=== PATIENT | male | born 1985 | race Caucasian/White ===

== ENCOUNTER 2024-06-02 15:00 | Emergency (ER) | payer MEDICAID ==
[~2024-06-02] VITALS: Ht 175.3 cm; Wt 127.9 kg
[~2024-06-02 15:00] MED LIST: NABU-141 PO
[2024-06-02 15:14] VITALS: BP 152/84; TEMP 98.3
[2024-06-02] MEDS ORDERED: METH4TAB3 PO (15:44)
[2024-06-02 15:52] VITALS: O2SAT 97
[2024-06-02] MEDS ORDERED: HYDROCODONE/APAP 5/325MG TABLET ONE (15:54)
[2024-06-02] MEDS ORDERED: HYDROCODONE/APAP 5/325MG TABLET PO ONE (16:00)
== END 2024-06-02 15:52 | disposition home or self-care (01) ==
LOC: ER 15:05
DX: M79.675 Pain in left toe(s) (principal); E78.00 Pure hypercholesterolemia, unspecified; I10 Essential (primary) hypertension